=== PATIENT | female | born 1975 | race Caucasian/White ===

== ENCOUNTER 2021-10-05 21:43 | Inpatient (IN) ==
[2021-10-05] MEDS ORDERED: 0.9 % Sodium Chloride 1,000 ML IVC ONE (23:28)
[2021-10-05] MEDS ORDERED: *HR* Promethazine 25 MG/ML VIAL IM ONE (23:37)
[2021-10-06 00:03] LABS: Alanine Aminotransferase 9 Units/L (7-52); Albumin 4.1 g/dL (3.5-5.7); Albumin/Globulin Ratio 1.8 (1.1-2.2); Alkaline Phosphatase 68 Units/L (34-104); Aspartate Amino Transferase 13 Units/L (13-39); BUN/Creatinine Ratio 17 (6-26); Bilirubin,Total 0.6 mg/dL (0.3-1.0); Blood Urea Nitrogen 13 mg/dL (6-20); Calcium 8.6 mg/dL (8.6-10.3); Carbon Dioxide 25 mEq/L (23-29); Chloride 106 mEq/L (98-107); Globulin 2.3 g/dL (2.4-3.5); Glucose 106 mg/dL (70-105); Lipase 10 Units/L (11-82); Osmolality,Calculated 289 (280-300); Potassium 3.4 mEq/L (3.5-5.1); Sodium 139 mEq/L (136-145); Total Protein 6.4 g/dL (6.4-8.9); eGFR For African Americans > 60 (> 60); eGFR For Non-African Americans > 60 (> 60)
[2021-10-06] MEDS ORDERED: Ipratropium/Albuterol Neb 3 ML IH ONE (00:04)
[2021-10-06 00:14] LABS: Basophils % 0.3 %; Eosinophils # 0.4 K/mcL (0.0-0.6); Eosinophils % 5.5 %; Hematocrit 39.3 % (35.3-44.9); Hemoglobin 13.6 g/dL (11.5-15.4); Immature Granulocytes % 1.1 % (0-4); Lymphocytes # 1.1 K/mcL (0.6-4.6); Lymphocytes % 15.2 %; Mean Corpuscular HGB Conc 34.6 g/dL (31.6-35.5); Mean Corpuscular Volume 92.5 fL (83.0-100.0); Mean Platelet Volume 9.9 fL (9.4-12.4); Monocytes # 0.4 K/mcL (0.0-1.3); Monocytes % 5.6 %; Neutrophils # 5.2 K/mcL (1.6-8.9); Platelet Count 264 K/mcL (140-400); Red Blood Count 4.25 M/mcL (3.82-4.97); Red Cell Distribution Width 12.9 % (11.5-14.5); Segmented Neutrophils % 72.3 %; White Blood Count 7.2 K/mcL (4.3-11.1)
[2021-10-06] MEDS ORDERED: Dicyclomine 20 MG/2 ML AMPUL IM ONE (00:25)
[2021-10-06 00:34] LABS: Influenza A PCR Negative (Negative); Influenza B PCR Negative (Negative); Resp. Syncytial Virus PCR Negative (Negative)
[2021-10-06 00:39] LABS: SARS-CoV-2 by PCR (In House) Negative (Negative)
[2021-10-06] MEDS ORDERED: Ringers Solution, Lactated 1,000 ML IVC ONE (01:06)
[2021-10-06] MEDS ORDERED: Morphine Sulfate 2 MG/ML SYRINGE IVP ONE ×3 (01:28→13:43)
[2021-10-06] MEDS ORDERED: Naloxone 0.4 MG/ML INJ IVP PRN ×2 (05:22→09:37)
[2021-10-06] MEDS ORDERED: Acetaminophen 325 MG TABLET PO PRN (06:00)
[2021-10-06] MEDS ORDERED: Pantoprazole 80 MG in 0.9 % Sodium Chloride 50 ML IVPB ONE (06:13)
[2021-10-06] MEDS ORDERED: Perflutren Lipid Microsphere 1.3 ML in 0.9 % Sodium Chloride 8.7 ML IVP PRN (06:22)
[2021-10-06] MEDS ORDERED: 0.9 % Sodium Chloride 250 ML ONE (06:30)
[2021-10-06] MEDS ORDERED: Vancomycin 1,750 MG/517.5 ML IV.SOLN IVPB ONE (07:00)
[2021-10-06] MEDS ORDERED: Cefepime HCl 2,000 MG in 0.9 % Sodium Chloride Mini Bag 100 ML IVPB SCH (08:00)
[2021-10-06] MEDS ORDERED: *HR* Promethazine 25 MG/ML VIAL IM ONE (08:43)
[2021-10-06] MEDS: Cefepime HCl 2,000 MG in 0.9 % Sodium Chloride 10 ML IVP SCH ×3 (08:47→23:56)
[2021-10-06] MEDS: 0.9 % Sodium Chloride 1,000 ML IVC SCH ×2 (08:54→20:33)
[2021-10-06] MEDS ORDERED: Cefepime HCl 2,000 MG in 0.9 % Sodium Chloride 10 ML IVPB SCH (09:00)
[2021-10-06] MEDS: *HR* HYDROcodone/Acet 5/325 mg TABLET PO PRN ×2 (09:21→17:32)
[2021-10-06] MEDS ORDERED: Albuterol 2.5 MG/3 ML NEBULIZER IH PRN (09:37)
[2021-10-06] MEDS ORDERED: Promethazine 6.25 MG in Water for inj. (sterile) 20 ML IVPB PRN (10:39)
[2021-10-06] MEDS ORDERED: Lidocaine HCL 4 ML Topical Solution (Laryng-O-Jet Kit Sterile Pak) TP ONE (10:40)
[2021-10-06] MEDS ORDERED: *HR* Rocuronium Bromide 50 MG/5 ML VIAL ONE ×2 (10:40→10:51)
[2021-10-06] MEDS ORDERED: *HR* Propofol 200 MG/20 ML VIAL IVP ONE ×2 (10:41→10:47)
[2021-10-06] MEDS ORDERED: *HR* Midazolam HCl 2 MG/2 ML VIAL ONE ×2 (10:41→10:47)
[2021-10-06] MEDS ORDERED: *HR* FentaNYL (PF) 100 MCG/2 ML VIAL ONE ×2 (10:41→10:47)
[2021-10-06] MEDS ORDERED: Lidocaine -MPF 2% 2 ML VIAL ONE (10:49)
[2021-10-06] MEDS ORDERED: Sugammadex Sodium 200 MG/2 ML VIAL IV ONE (10:49)
[2021-10-06] MEDS ORDERED: Metoclopramide 10 MG/2 ML VIAL IVP ONE (14:14)
[2021-10-06] MEDS ORDERED: Prochlorperazine 10 MG/2 ML VIAL IVP PRN (19:59)
[2021-10-06] MEDS ORDERED: *HR* HYDROmorphone (PF) 1 MG/ML SYRINGE IVP ONE ×2 (20:01→20:15)
[2021-10-06] MEDS: tiZANidine 4 MG TABLET PO PRN (20:54)
[2021-10-06] MEDS: QUEtiapine Fumarate 300 MG TABLET PO SCH (20:54)
[2021-10-07] MEDS ORDERED: Prochlorperazine 10 MG/2 ML VIAL IVP ONE (01:57)
[2021-10-07] MEDS ORDERED: *HR* HYDROmorphone (PF) 1 MG/ML SYRINGE IVP ONE (01:59)
[2021-10-07] MEDS ORDERED: Vancomycin 1,250 MG/262.5 ML IV.SOLN IVPB SCH (03:00)
[2021-10-07 03:06] LABS: Bilirubin,Urine Negative (Negative); Blood,Urine Negative (Negative); Clarity,Urine Clear (Clear); Color,Urine Yellow (Yellow); Glucose,Urine (UA) Normal (Normal); Ketones,Urine Trace mg/dL (Negative); Leukocyte Esterase,Urine Negative (Negative); Mucus,Urine Few per lpf (None-Few); Nitrite,Urine Negative (Negative); Protein,Urine 50 mg/dL (Neg-Trace); Squamous Epithelial Cell,Urine Few per hpf (None-Few); Urobilinogen,Urine Normal (Normal); WBC,Urine 0-3 per hpf (0-3)
[2021-10-07 05:47] LABS: Basophils % 0.3 %; Eosinophils # 0.2 K/mcL (0.0-0.6); Hematocrit 32.6 % (35.3-44.9); Hemoglobin 10.9 g/dL (11.5-15.4); Immature Granulocytes % 0.3 % (0-4); Lymphocytes # 1.2 K/mcL (0.6-4.6); Mean Corpuscular HGB Conc 33.4 g/dL (31.6-35.5); Mean Corpuscular Hemoglobin 31.9 pg (28.0-33.3); Mean Corpuscular Volume 95.3 fL (83.0-100.0); Mean Platelet Volume 9.6 fL (9.4-12.4); Monocytes # 0.6 K/mcL (0.0-1.3); Monocytes % 10.6 %; Neutrophils # 3.8 K/mcL (1.6-8.9); Platelet Count 203 K/mcL (140-400); Red Blood Count 3.42 M/mcL (3.82-4.97); Segmented Neutrophils % 65.8 %; White Blood Count 5.8 K/mcL (4.3-11.1)
[2021-10-07] MEDS: 0.9 % Sodium Chloride 1,000 ML IVC SCH ×3 (05:49→23:27)
[2021-10-07 06:07] LABS: Alanine Aminotransferase 10 Units/L (7-52); Albumin 3.3 g/dL (3.5-5.7); Albumin/Globulin Ratio 1.5 (1.1-2.2); Alkaline Phosphatase 50 Units/L (34-104); Aspartate Amino Transferase 15 Units/L (13-39); BUN/Creatinine Ratio 9 (6-26); Bilirubin,Total 0.3 mg/dL (0.3-1.0); Blood Urea Nitrogen 7 mg/dL (6-20); Calcium 7.5 mg/dL (8.6-10.3); Carbon Dioxide 24 mEq/L (23-29); Chloride 110 mEq/L (98-107); Globulin 2.2 g/dL (2.4-3.5); Glucose 136 mg/dL (70-105); Osmolality,Calculated 290 (280-300); Potassium 3.4 mEq/L (3.5-5.1); Sodium 140 mEq/L (136-145); Total Protein 5.5 g/dL (6.4-8.9); eGFR For African Americans > 60 (> 60); eGFR For Non-African Americans > 60 (> 60)
[2021-10-07] MEDS: *HR* HYDROcodone/Acet 5/325 mg TABLET PO PRN ×2 (06:45→14:43)
[2021-10-07 08:02] LABS: BUN/Creatinine Ratio 9 (6-26); Blood Urea Nitrogen 6 mg/dL (6-20); C-Reactive Protein 13 mg/L (Less than 10); Calcium 7.6 mg/dL (8.6-10.3); Carbon Dioxide 23 mEq/L (23-29); Chloride 110 mEq/L (98-107); Glucose 135 mg/dL (70-105); Magnesium 1.5 mg/dL (1.6-2.6); Osmolality,Calculated 294 (280-300); Potassium 3.4 mEq/L (3.5-5.1); Sodium 142 mEq/L (136-145); eGFR For African Americans > 60 (> 60); eGFR For Non-African Americans > 60 (> 60)
[2021-10-07] MEDS: Ipratropium/Albuterol Neb 3 ML IH PRN ×4 (08:08→19:48)
[2021-10-07] MEDS: QUEtiapine Fumarate 300 MG TABLET PO SCH ×3 (10:07→19:45)
[2021-10-07] MEDS ORDERED: *HR* Promethazine 25 MG/ML VIAL IM PRN (10:08)
[2021-10-07] MEDS: Pantoprazole 40 MG VIAL IVP SCH ×2 (10:12→19:45)
[2021-10-07] MEDS: Cefepime HCl 2,000 MG in 0.9 % Sodium Chloride 10 ML IVP SCH ×2 (10:12→10:20)
[2021-10-07] MEDS: *HR* HYDROmorphone (PF) 1 MG/ML SYRINGE IVP PRN ×2 (10:25→16:55)
[2021-10-07] MEDS: Prochlorperazine 10 MG/2 ML VIAL IVP PRN (10:26)
[2021-10-07] MEDS ORDERED: GI Cocktail 40 ML EACH PO ONE (11:01)
[2021-10-07] MEDS: tiZANidine 4 MG TABLET PO PRN (11:39)
[2021-10-08] MEDS: *HR* HYDROmorphone (PF) 1 MG/ML SYRINGE IVP PRN ×2 (00:23→06:37)
[2021-10-08] MEDS: 0.9 % Sodium Chloride 1,000 ML IVC SCH ×2 (02:17→08:30)
[2021-10-08] MEDS: Ipratropium/Albuterol Neb 3 ML IH PRN (03:49)
[2021-10-08 06:35] LABS: Basophils % 0.3 %; Eosinophils # 0.4 K/mcL (0.0-0.6); Eosinophils % 6.2 %; Hemoglobin 11.2 g/dL (11.5-15.4); Immature Granulocytes % 0.3 % (0-4); Lymphocytes # 1.6 K/mcL (0.6-4.6); Lymphocytes % 26.1 %; Mean Corpuscular HGB Conc 32.9 g/dL (31.6-35.5); Mean Corpuscular Hemoglobin 31.8 pg (28.0-33.3); Mean Corpuscular Volume 96.6 fL (83.0-100.0); Monocytes # 0.5 K/mcL (0.0-1.3); Monocytes % 7.5 %; Neutrophils # 3.6 K/mcL (1.6-8.9); Platelet Count 222 K/mcL (140-400); Red Blood Count 3.52 M/mcL (3.82-4.97); Red Cell Distribution Width 13.1 % (11.5-14.5); Segmented Neutrophils % 59.6 %
[2021-10-08 06:55] LABS: BUN/Creatinine Ratio 5 (6-26); Blood Urea Nitrogen 4 mg/dL (6-20); Calcium 7.9 mg/dL (8.6-10.3); Carbon Dioxide 27 mEq/L (23-29); Chloride 107 mEq/L (98-107); Glucose 93 mg/dL (70-105); Osmolality,Calculated 287 (280-300); Sodium 140 mEq/L (136-145); eGFR For African Americans > 60 (> 60); eGFR For Non-African Americans > 60 (> 60)
[2021-10-08] MEDS: *HR* HYDROcodone/Acet 5/325 mg TABLET PO PRN ×3 (08:22→22:53)
[2021-10-08] MEDS: tiZANidine 4 MG TABLET PO PRN ×2 (08:23→22:53)
[2021-10-08] MEDS: QUEtiapine Fumarate 300 MG TABLET PO SCH ×2 (08:23→21:05)
[2021-10-08] MEDS: Prochlorperazine 10 MG/2 ML VIAL IVP PRN ×2 (08:33→17:27)
[2021-10-08] MEDS: Metoclopramide 10 MG/2 ML VIAL IVP SCH ×3 (09:57→17:30)
[2021-10-09] MEDS: Metoclopramide 10 MG/2 ML VIAL IVP SCH ×2 (00:01→06:25)
[2021-10-09] MEDS: Prochlorperazine 10 MG/2 ML VIAL IVP PRN (04:37)
[2021-10-09 07:09] LABS: BUN/Creatinine Ratio 3 (6-26); Blood Urea Nitrogen 2 mg/dL (6-20); Carbon Dioxide 28 mEq/L (23-29); Chloride 107 mEq/L (98-107); Glucose 86 mg/dL (70-105); Osmolality,Calculated 281 (280-300); Potassium 3.7 mEq/L (3.5-5.1); Sodium 138 mEq/L (136-145); eGFR For African Americans > 60 (> 60); eGFR For Non-African Americans > 60 (> 60)
[2021-10-09] MEDS ORDERED: methylPREDNISolone 125 MG/2 ML VIAL IVP ONE (07:31)
[2021-10-09] MEDS: QUEtiapine Fumarate 300 MG TABLET PO SCH (07:33)
[2021-10-09] MEDS: Ipratropium/Albuterol Neb 3 ML IH PRN (07:37)
[2021-10-09 07:46] VITALS: BP 122/81; PULSE 79; TEMP 97.9; O2SAT 96
== END 2021-10-09 11:46 | disposition home or self-care (01) | DRG 391 ==
LOC: EMEROOARM 21:43 → 3ANU 21:43 → SUATTDRO 10-06 04:47 → 3ANU 10-06 05:14 → SUATTDRO 10-07 10:55
PROVIDERS: ADMIT Internal Medicine; ATTEND Internal Medicine
PROC: ENDOEBX (2021-10-06 09:25)